=== PATIENT | female | born 1950 | race African-American/Black ===

== ENCOUNTER 2018-04-28 13:08 | Emergency (ER) | payer OTHER ==
[~2018-04-28] VITALS: Ht 160 cm; Wt 70.0 kg
[~2018-04-28 13:08] MED LIST: LORT5TAB PO; PRED20 PO; Z.0.NO CURRENT MEDS
[2018-04-28 13:35] VITALS: BP 137/63; PULSE 68; RESP 16; TEMP 97.8; O2SAT 100
[2018-04-28] MEDS ORDERED: LINA145C PO (14:14)
--- NOTE | 2018-04-28 14:40 | PD ---
HPI Chief Complaint: Musculoskeletal Complaint Time Seen by Provider: 14:32 Travel History International Travel<30 days: No Contact w/Intl Traveler<30days: No Traveled to known affect area: No History of Present Illness HPI 67-year-old -[place] female presents emergency department with 2 day history of left posterior shoulder/upper back pain. Patient states pain is worse with certain movements. She denies weakness. She denies chest pain. She denies shortness of breath. No nausea, or vomiting. No recent fever or chills. No cough. Patient states it started after working out at the gym. She denies any specific injury. Pain has been persistent despite taking a muscle relaxant last evening, and some Aleve 2 days ago. She has not tried heat or ice. Pain is currently spasm-like and 8 out of 10. She has no known drug allergies. PFSH Past Medical History Diminished Hearing: No Gastrointestinal Disorders: Yes (CONSTIPATION) Medical other: Yes (DDD) ?: Not : 3 Para: 2 : 1 Past Surgical History Tonsillectomy: Yes Other Surgery: Yes (LEFT ARM SURGERY) Social History Alcohol Use: No Tobacco Use: No Substance Use: No Allergies-Medications (Allergen,Severity, Reaction): Coded Allergies: No Known Allergies (Verified Adverse Reaction, Unknown, 04/28/18) Reported Meds & Prescriptions Reported Meds & Active Scripts Active Reported Linzess (Linaclotide) 145 Mcg Cap 145 Mcg PO DAILY PRN Review of Systems Except as stated in HPI: all other systems reviewed are Neg General / Constitutional: No: Fever Eyes: No: Visual changes HENT: No: Headaches Cardiovascular: No: Chest Pain or Discomfort Respiratory: No: Shortness of Breath Gastrointestinal: No: Abdominal Pain Genitourinary: No: Dysuria Musculoskeletal: Positive: Myalgias, Pain (See history of present illness per) , No: Arthralgias, Limited ROM Skin: No Rash Neurologic: No: Weakness Psychiatric: No: Depression Endocrine: No: Polydipsia Hematologic/Lymphatic: No: Easy Bruising Physical Exam Narrative GENERAL: Patient appears in no obvious distress. SKIN: Warm and dry. Normal color. Normal turgor. No rash. HEAD: Atraumatic. Normocephalic. EYES: Pupils equal and round. No scleral icterus. No injection or drainage. ENT: No nasal bleeding or discharge. Mucous membranes pink and moist. Pharynx is clear. Airway is patent. NECK: Trachea midline. No bony tenderness or step-off. CARDIOVASCULAR: Regular rate and rhythm. RESPIRATORY: No accessory muscle use. Clear to auscultation. Breath sounds equal bilaterally. GASTROINTESTINAL: Abdomen soft, non-tender, nondistended. Hepatic and splenic margins not palpable. MUSCULOSKELETAL: Extremities without clubbing, cyanosis, or edema. No obvious deformities. Patient has soft tissue tenderness along the left scapular border with obvious muscle spasm. Palpation of this area reproduces the patient's symptoms. Patient has no weakness. NEUROLOGICAL: Awake and alert. No obvious cranial nerve deficits. Motor grossly within normal limits. Five out of 5 muscle strength in the arms and legs. Normal speech. PSYCHIATRIC: Appropriate mood and affect; insight and judgment normal. Data Data Last Documented VS Vital Signs Date Time Temp Pulse Resp B/P (MAP) Pulse Ox O2 Delivery O2 Flow Rate FiO2 04/28/18 13:35 97.8 68 16 137/63 (87) 100 Orders Orders Ketorolac Inj (Toradol Inj) (04/28/18 14:45) Orphenadrine Inj (Norflex Inj) (04/28/18 14:45) [facility] Medical Decision Making Medical Screen Exam Complete: Yes Emergency Medical Condition: Yes Differential Diagnosis Left shoulder pain. Left shoulder strain. Muscle spasm. Narrative Course Patient is medically stable at time of exam. Patient is felt to have a muscle skeletal issue. Radiographic imaging or labs are not felt warranted based on my history and physical. Patient is given Toradol 30 mg IM as well as 60 mg Norflex IM. Patient will be continued on ibuprofen 600 mg 4 times daily #40. Patient also continued on Norflex 100 mg twice daily #20. Patient is to use heat to the area for 20 minutes followed by ice. Massage and gentle stretching recommended as well. Patient to follow-up if symptoms persist or worsen as needed Diagnosis Primary Impression: Acute thoracic myofascial strain Qualified Codes: S29.019A - Strain of muscle and tendon of unspecified wall of thorax, initial encounter Additional Impression: Muscle spasm of back Referrals: Primary Care Physician Patient Instructions: General Instructions, Muscle Spasm (ED) Additional Instructions: Patient is felt to have a muscle skeletal issue. Radiographic imaging or labs are not felt warranted based on my history and physical. Patient is given Toradol 30 mg IM as well as 60 mg Norflex IM. Patient will be continued on ibuprofen 600 mg 4 times daily #40. Patient also continued on Norflex 100 mg twice daily #20. Patient is to use heat to the area for 20 minutes followed by ice. Massage and gentle stretching recommended as well. Patient to follow-up if symptoms persist or worsen as needed Med/Other Pt SpecificInfo: Prescription(s) given Disposition: 01 DISCHARGE HOME Condition: Stable Demetrius Hoskins Apr 28, 2018 14:40
[2018-04-28] MEDS ORDERED: ORPHENADRINE INJ 60 MG/2 ML AMP IM ONE (14:45)
[2018-04-28] MEDS ORDERED: KETOROLAC TROMETHAMINE 60 MG/2 ML (IM) VIAL IM ONE (14:45)
[2018-04-28] MEDS ORDERED: IBUP-232 PO (14:50)
[2018-04-28] MEDS ORDERED: ORPH100T2 PO (14:50)
== END 2018-04-28 15:55 | disposition home or self-care (01) ==
LOC: NEPD 13:08
DX: S29.019A Strain of muscle and tendon of unspecified wall of thorax, initial encounter (principal); X58.XXXA Exposure to other specified factors, initial encounter
CPT/HCPCS: 96372; 99283; J1885; J2360